=== PATIENT | female | born 1955 | race Asian ===

== ENCOUNTER 2024-02-11 15:28 | Inpatient (IN) | payer OTHER, BC ==
[2024-02-11] MEDS ORDERED: ACETAMINOPHEN INJECTION 100 ML IVPB ONE (17:09)
[2024-02-11] MEDS: ACETAMINOPHEN 1000 MG/100 ML BAG IVPB ONE (17:35)
[2024-02-11 17:45] LABS: INR 1.08 (0.83-1.09); PROTHROMBIN TIME (PATIENT) 12.5 SEC (9.7-13.0)
[2024-02-11 17:46] LABS: HEMATOCRIT 40.1 % (32.4-45.2); HEMOGLOBIN 12.9 GM/dL (10.7-15.3); MCHC 32.2 g/dl (32.0-36.0); MEAN CELL VOLUME 83.8 fl (80-96); MEAN PLT VOLUME 7.8 fl (7.5-11.1); PLATELET COUNT 243 10^3/uL (134-434); RBC 4.78 M/mm3 (3.60-5.2); RDW 13.1 % (11.6-15.6); WHITE BLOOD COUNT 14.8 K/mm3 (4.0-10.0)
[2024-02-11 17:48] LABS: ACTIVATED PTT 35.5 SECONDS (25.2-36.5)
[2024-02-11 17:58] LABS: POTASSIUM 4.1 mmol/L (3.5-5.1)
[2024-02-11 17:59] LABS: CALCIUM 9.4 mg/dL (8.5-10.1)
[2024-02-11 18:00] LABS: ALBUMIN 3.8 g/dl (3.4-5.0)
[2024-02-11 18:03] LABS: CREATININE 0.8 mg/dL (0.55-1.3)
[2024-02-11 18:05] LABS: BILIRUBIN,TOTAL 0.8 mg/dL (0.2-1); TOT PROT 7.6 g/dl (6.4-8.2)
[2024-02-11] MEDS: morphine CARPU-JECT 2 MG/1 ML DISP.SYRIN IVPUSH ONE (18:25)
[2024-02-11 18:56] LABS: PLATELET ESTIMATE ADEQUATE
[2024-02-11 20:06] LABS: EPI CELLS 33 /uL (0-25.1); HYALINE CASTS 0 /uL (0-3.1); URINE APPEARANCE CLEAR; URINE BACTERIA 108 /uL (0-1359); URINE BILIRUBIN NEGATIVE (NEGATIVE); URINE COLOR YELLOW; URINE GLUCOSE (UA) NEGATIVE (NEGATIVE); URINE KETONE TRACE (NEGATIVE); URINE LEUK ESTERASE NEGATIVE (NEGATIVE); URINE NITRITE NEGATIVE (NEGATIVE); URINE PROTEIN 2+ (NEGATIVE); URINE RBC 819 /uL (0-23.9); URINE UROBILINOGEN 0.2 mg/dL (0.2-1.0); URINE WBC 16 /uL (0-25.8)
[2024-02-11] MEDS ORDERED: ACETAMINOPHEN 1000 MG/100 ML BAG IVPB PRN ×2 (22:19→22:21)
[2024-02-11] MEDS ORDERED: traMADol HCL 50 MG TABLET PO PRN (22:20)
[2024-02-12 02:03] LABS: EPI CELLS 5 /uL (0-25.1); HYALINE CASTS 1 /uL (0-3.1); URINE APPEARANCE CLEAR; URINE BACTERIA 4 /uL (0-1359); URINE BILIRUBIN NEGATIVE (NEGATIVE); URINE COLOR YELLOW; URINE GLUCOSE (UA) NEGATIVE (NEGATIVE); URINE KETONE NEGATIVE (NEGATIVE); URINE LEUK ESTERASE NEGATIVE (NEGATIVE); URINE NITRITE NEGATIVE (NEGATIVE); URINE PROTEIN 1+ (NEGATIVE); URINE RBC 255 /uL (0-23.9); URINE UROBILINOGEN 0.2 mg/dL (0.2-1.0); URINE WBC 5 /uL (0-25.8)
[2024-02-12] MEDS: INSULIN ASPART SLIDING SCALE (NOVOLOG) 1 VIAL SQ SCH (06:26)
[2024-02-12] MEDS ORDERED: INSULIN ASPART SLIDING SCALE (NOVOLOG) 1 VIAL SQ SCH (07:00)
[2024-02-12 09:06] LABS: BASO % 0.6 % (0-2.0); EOS % 1.7 % (0-4.5); HEMATOCRIT 35.8 % (32.4-45.2); HEMOGLOBIN 11.9 GM/dL (10.7-15.3); LYMPH % 9.7 % (8-40); MCH 27.6 pg (25.7-33.7); MCHC 33.1 g/dl (32.0-36.0); MEAN CELL VOLUME 83.4 fl (80-96); MEAN PLT VOLUME 8.1 fl (7.5-11.1); MONO % 6.1 % (3.8-10.2); NEUT % 81.9 % (42.8-82.8); PLATELET COUNT 206 10^3/uL (134-434); RBC 4.29 M/mm3 (3.60-5.2); RDW 12.9 % (11.6-15.6); WHITE BLOOD COUNT 10.7 K/mm3 (4.0-10.0)
[2024-02-12 09:23] LABS: POTASSIUM 3.8 mmol/L (3.5-5.1)
[2024-02-12 09:28] LABS: CALCIUM 9.3 mg/dL (8.5-10.1)
[2024-02-12 09:29] LABS: ALBUMIN 3.4 g/dl (3.4-5.0); BLOOD UREA NITROGEN 20.7 mg/dL (7-18); MAGNESIUM 1.7 mg/dL (1.8-2.4)
[2024-02-12 09:32] LABS: CREATININE 0.8 mg/dL (0.55-1.3); PHOSPHOROUS 3.2 mg/dL (2.5-4.9)
[2024-02-12 09:33] LABS: BILIRUBIN,TOTAL 1.2 mg/dL (0.2-1); TOT PROT 7.1 g/dl (6.4-8.2)
[2024-02-12] MEDS: NICOTINE 14 MG/24 HOURS TOPICAL PATCH TD SCH (10:11)
[2024-02-13] MEDS ORDERED: ceFAZolin SODIUM 1 GM VIAL ONE (11:09)
[2024-02-13] MEDS ORDERED: FENTANYL CITRATE/PF 50 MCG/ML VIAL ONE ×2 (11:43→11:50)
[2024-02-13] MEDS ORDERED: PROPOFOL 20 ML ONE (11:45)
[2024-02-13] MEDS: ceFAZolin SODIUM 1 GM VIAL IVPB ONE (12:00)
[2024-02-13] MEDS ORDERED: MIDAZOLAM HCL 2 MG/2 ML SINGLE DOSE VIAL ONE (12:14)
[2024-02-13] MEDS: ONDANSETRON 4 MG/2 ML VIAL IVPUSH PRN (13:10)
[2024-02-13] MEDS: LACTATED RINGERS SOLUTION 1,000 ML IV SCH (15:00)
[2024-02-13] MEDS: INSULIN ASPART SLIDING SCALE (NOVOLOG) 1 VIAL SQ SCH (16:44)
[2024-02-13] MEDS ORDERED: CEFAZOLIN 1 GM in DEXTROSE 5%-WATER - 50 ML IVPB SCH (20:00)
[2024-02-13] MEDS: traMADol HCL 50 MG TABLET PO PRN (21:26)
[2024-02-13] MEDS: CEFAZOLIN 1 GM in DEXTROSE 5%-WATER - 50 ML IVPB SCH ×2 (22:16→22:19)
[2024-02-14] MEDS ORDERED: ASPIRIN 325 MG TABLET PO SCH (08:00)
[2024-02-14] MEDS: NICOTINE 14 MG/24 HOURS TOPICAL PATCH TD SCH (09:06)
[2024-02-14] MEDS: ASPIRIN 325 MG TABLET PO SCH (09:06)
[2024-02-14 10:16] LABS: HEMATOCRIT 32.2 % (32.4-45.2); HEMOGLOBIN 10.7 GM/dL (10.7-15.3); MCH 27.5 pg (25.7-33.7); MCHC 33.2 g/dl (32.0-36.0); MEAN CELL VOLUME 82.9 fl (80-96); MEAN PLT VOLUME 8.2 fl (7.5-11.1); PLATELET COUNT 184 10^3/uL (134-434); RBC 3.89 M/mm3 (3.60-5.2); WHITE BLOOD COUNT 12.7 K/mm3 (4.0-10.0)
[2024-02-14 10:23] LABS: POTASSIUM 4.5 mmol/L (3.5-5.1)
[2024-02-14 10:36] LABS: CALCIUM 9.2 mg/dL (8.5-10.1)
[2024-02-14 10:37] LABS: BLOOD UREA NITROGEN 22.3 mg/dL (7-18)
[2024-02-14 10:40] LABS: CREATININE 0.7 mg/dL (0.55-1.3)
[2024-02-14] MEDS: NICOTINE 21 MG/24 HOURS TOPICAL PATCH TD SCH (16:44)
[2024-02-14 18:25] LABS: MAGNESIUM 1.9 mg/dL (1.8-2.4)
[2024-02-14 18:33] LABS: N-TERMINAL BNP 144.5 pg/ml (5-125)
[2024-02-14] MEDS: ACETAMINOPHEN 1000 MG/100 ML BAG IVPB ONE (21:30)
[2024-02-15 08:28] LABS: HEMOGLOBIN 9.6 GM/dL (10.7-15.3); MCH 26.8 pg (25.7-33.7); MCHC 31.9 g/dl (32.0-36.0); MEAN CELL VOLUME 84.1 fl (80-96); MEAN PLT VOLUME 8.5 fl (7.5-11.1); PLATELET COUNT 185 10^3/uL (134-434); RBC 3.56 M/mm3 (3.60-5.2); RDW 12.9 % (11.6-15.6); WHITE BLOOD COUNT 12.1 K/mm3 (4.0-10.0)
[2024-02-15] MEDS ORDERED: INSULIN ASPART SLIDING SCALE (NOVOLOG) 1 VIAL SQ ONE (10:51)
[2024-02-15] MEDS: ATORVASTATIN CA 10 MG TABLET (FP) PO SCH (21:08)
[2024-02-16 06:16] VITALS: RESP 18
[2024-02-16 16:14] LABS: PH,URINE 6.5 (5.0-8.0); URINE APPEARANCE CLEAR; URINE BILIRUBIN NEGATIVE (NEGATIVE); URINE COLOR YELLOW; URINE GLUCOSE (UA) NEGATIVE (NEGATIVE); URINE KETONE NEGATIVE (NEGATIVE); URINE LEUK ESTERASE NEGATIVE (NEGATIVE); URINE NITRITE NEGATIVE (NEGATIVE); URINE PROTEIN TRACE (NEGATIVE)
[2024-02-16 17:02] LABS: BASO % 0.2 % (0-2.0); HEMATOCRIT 28.7 % (32.4-45.2); HEMOGLOBIN 9.2 GM/dL (10.7-15.3); LYMPH % 8.4 % (8-40); MCH 26.7 pg (25.7-33.7); MCHC 32.2 g/dl (32.0-36.0); MEAN CELL VOLUME 82.7 fl (80-96); MEAN PLT VOLUME 7.9 fl (7.5-11.1); MONO % 11.4 % (3.8-10.2); PLATELET COUNT 279 10^3/uL (134-434); RBC 3.46 M/mm3 (3.60-5.2); RDW 12.5 % (11.6-15.6); WHITE BLOOD COUNT 11.4 K/mm3 (4.0-10.0)
[2024-02-16 17:18] LABS: POTASSIUM 4.3 mmol/L (3.5-5.1)
[2024-02-16 17:20] LABS: CALCIUM 8.6 mg/dL (8.5-10.1)
[2024-02-16 17:21] LABS: BLOOD UREA NITROGEN 16.9 mg/dL (7-18)
[2024-02-16 17:24] LABS: CREATININE 0.5 mg/dL (0.55-1.3)
[2024-02-16 17:25] LABS: BILIRUBIN,TOTAL 0.5 mg/dL (0.2-1); TOT PROT 6.1 g/dl (6.4-8.2)
[2024-02-16 17:39] LABS: ALBUMIN 2.5 g/dl (3.4-5.0)
[2024-02-16] MEDS ORDERED: INSULIN ASPART SLIDING SCALE (NOVOLOG) 1 VIAL SQ ONE (18:18)
[2024-02-16] MEDS: oxyCODONE HCL 5 MG TABLET PO PRN (23:24)
[2024-02-17 09:48] LABS: BASO % 0.9 % (0-2.0); EOS % 1.9 % (0-4.5); HEMATOCRIT 27.6 % (32.4-45.2); HEMOGLOBIN 8.8 GM/dL (10.7-15.3); LYMPH % 11.1 % (8-40); MCH 26.8 pg (25.7-33.7); MCHC 32.1 g/dl (32.0-36.0); MEAN CELL VOLUME 83.5 fl (80-96); MEAN PLT VOLUME 7.7 fl (7.5-11.1); MONO % 10.3 % (3.8-10.2); NEUT % 75.8 % (42.8-82.8); PLATELET COUNT 296 10^3/uL (134-434); RDW 12.7 % (11.6-15.6)
[2024-02-17 10:05] LABS: POTASSIUM 4.4 mmol/L (3.5-5.1)
[2024-02-17 10:07] LABS: ALBUMIN 2.2 g/dl (3.4-5.0); BLOOD UREA NITROGEN 15.6 mg/dL (7-18); CALCIUM 8.7 mg/dL (8.5-10.1)
[2024-02-17 10:10] LABS: CREATININE 0.6 mg/dL (0.55-1.3)
[2024-02-17 10:12] LABS: BILIRUBIN,TOTAL 0.6 mg/dL (0.2-1); TOT PROT 5.8 g/dl (6.4-8.2)
[2024-02-18 10:06] LABS: HEMATOCRIT 29.7 % (32.4-45.2); HEMOGLOBIN 9.6 GM/dL (10.7-15.3); MCH 26.8 pg (25.7-33.7); MCHC 32.3 g/dl (32.0-36.0); MEAN CELL VOLUME 83.1 fl (80-96); MEAN PLT VOLUME 7.3 fl (7.5-11.1); PLATELET COUNT 386 10^3/uL (134-434); RBC 3.57 M/mm3 (3.60-5.2); RDW 12.8 % (11.6-15.6)
[2024-02-18 10:20] LABS: POTASSIUM 4.8 mmol/L (3.5-5.1)
[2024-02-18 10:28] LABS: BLOOD UREA NITROGEN 19.9 mg/dL (7-18)
[2024-02-18 10:29] LABS: CALCIUM 9.2 mg/dL (8.5-10.1)
[2024-02-18 10:32] LABS: CREATININE 0.7 mg/dL (0.55-1.3)
[2024-02-18] MEDS: POLYETHYLENE GLYCOL (HEALTHYLAX) 3350 17 GM PACKET PO SCH (12:21)
[2024-02-18 22:08] VITALS: BMI 20.9
[2024-02-19] MEDS: ACETAMINOPHEN 1000 MG/100 ML BAG IVPB ONE (20:31)
[2024-02-20] MEDS: oxyCODONE HCL 5 MG TABLET PO PRN (03:42)
[2024-02-20] MEDS: SODIUM PHOSPHATE/NA BIPHOS 133 ML ENEMA RC ONE (12:21)
[2024-02-20 14:27] VITALS: BP 121/62; PULSE 91; TEMP 97.9
== END 2024-02-20 16:55 | DRG 522 ==
LOC: JER 15:28 → JERBED 18:46 → J6S 23:52
PROVIDERS: ADMIT Internal Medicine; ATTEND Internal Medicine
PROC: 0SRR0JA Replacement of Right Hip Joint, Femoral Surface with Synthetic Substitute, Uncemented, Open Approach (ICD-10-PCS; principal; 2024-02-13 11:30)
DX: S72.001A Fracture of unspecified part of neck of right femur, initial encounter for closed fracture (principal); R31.9 Hematuria, unspecified; I10 Essential (primary) hypertension; E11.9 Type 2 diabetes mellitus without complications; F17.210 Nicotine dependence, cigarettes, uncomplicated; W19.XXXA Unspecified fall, initial encounter; Y93.9 Activity, unspecified; Y92.89 Other specified places as the place of occurrence of the external cause; Y99.9 Unspecified external cause status
CPT/HCPCS: 0241U-QW; 36415; 70450-TC; 71045-TC-FY; 72125-TC; 72170-TC-FY; 73502-TC-RT-FY; 80048; 80053; 80061; 81003; 82550; 82728; 82962; 83036; 83540; 83550; 83735; 83880; 84100; 84443; 84484; 85025; 85027; 85610; 85730; 86850; 86900; 86901; 87086; 87186; 88305-TC; 88311-TC; 93005; 93010; 93306-TC; 94010; 94760; 97116-GP; 97162-GP; 99285-25; C1776; J0131